=== PATIENT | female | born 1990 | race Caucasian/White ===

== ENCOUNTER 2020-07-17 13:06 | Day surgery (SDC) | payer MEDICAID ==
[2020-07-10 12:09] LABS: BASOPHILS % (AUTO) 0.6 % (0-1); EOSINOPHILS % (AUTO) 0.9 % (0-6); LYMPHOCYTES % (AUTO) 20.9 % (21-51); MEAN CORPUSCULAR HEMOGLOBIN 34.1 PG (27.0-31.0); MEAN CORPUSCULAR HGB CONC 33.8 g/dL (33.0-36.5); MEAN CORPUSCULAR VOLUME 100.8 FL (78-98); MEAN PLATELET VOLUME 8.8 FL (7.4-10.4); MONOCYTES # (AUTO) 0.4 X10'3 (0-0.9); MONOCYTES % (AUTO) 8.6 % (2-12); NEUTROPHILS # (AUTO) 3.3 X10'3 (1.8-7.7); PRE OP HEMATOCRIT 42.4 % (35.0-45.0); PRE OP HEMOGLOBIN 14.3 g/dL (12.0-16.0); PRE OP PLATELET COUNT 210 X10'3 (140-440); RED CELL DISTRIBUTION WIDTH 13.1 % (11.5-14.5)
[2020-07-10 12:16] LABS: CLARITY,URINE CLEAR (Clear); COLOR,URINE STRAW (Yellow); GLUCOSE, URINE NEGATIVE (Neg); KETONES,URINE NEGATIVE (Neg); LEUKOCYTE ESTERASE ,URINE SMALL (Neg); NITRITES, URINE NEGATIVE (Neg); OCCULT BLOOD,URINE NEGATIVE (Neg); PROTEIN,URINE NEGATIVE (Neg); UROBILINOGEN,URINE 0.2 E.U/dL (0.2-1.0)
[2020-07-10 12:32] LABS: ALBUMIN 3.5 G/DL (3.4-5.0); ALBUMIN/GLOBULIN RATIO 0.9 (1.1-1.5); ALKALINE PHOSPHATASE 48 IU/L (46-116); BLOOD UREA NITROGEN 11 MG/DL (7-18); BUN/CREATININE RATIO 15.1 (6.6-38.0); CHLORIDE 107 MMOL/L (99-107); CREATININE 0.73 MG/DL (0.40-0.90); PRE OP ALT 17 U/L (30-65); PRE OP ANION GAP 7 (8-16); PRE OP AST 17 U/L (10-37); PRE OP BILIRUB, TOTAL 0.5 MG/DL (0.0-1.0); PRE OP GLUCOSE 71 MG/DL (70-104); PRE OP POTASSIUM 4.1 MMOL/L (3.4-5.1); PRE OP SODIUM 142 MMOL/L (135-145); TOTAL CARBON DIOXIDE 27.8 MMOL/L (24-32); TOTAL PROTEIN 7.2 G/DL (6.4-8.2); eGFR > 90 ML/MIN
[2020-07-10 12:50] LABS: UA COLLECTION TYPE CLN CATCH MIDSTREAM
[2020-07-10 13:16] LABS: BACTERIA,URINE FEW /HPF (Neg); RBC,URINE 0-2 /HPF (0-2); SQUAMOUS EPITHELIAL CELL,UR FEW /LPF (FEW); WBC,URINE 0-4 /HPF (0-4)
[2020-07-10 13:23] LABS: HCG SERUM QL NEGATIVE
[2020-07-17] VITALS (8 sets, daily range): BP systolic 102–119; BP diastolic 68–78
[~2020-07-17] VITALS: Ht 167.6 cm; Wt 62.4 kg
[~2020-07-17 13:06] MED LIST: CATAPLEX E PO; GASTREX PO; THYROID COMPLEX PO; [UNRECOGNIZED DRUG - OTHER] PO; [UNRECOGNIZED DRUG - OTHER] PO; [UNRECOGNIZED DRUG - OTHER] PO; ceFOXitin 2GM-NS 100mL ADDvant 100 ML IV ONE; famotidine 20mg tablet PO ONE; ringers solution, lacted 1,000 ML IV SCH
[2020-07-17] MEDS ORDERED: meperidine/PF 25mg/ml syringe IV PRN ×3 (13:20)
[2020-07-17] MEDS ORDERED: ringers solution, lacted 1,000 ML IV SCH (13:20)
[2020-07-17] MEDS ORDERED: morphine 4 MG/ML inj SYRINge IV PRN (13:20)
[2020-07-17] MEDS ORDERED: morphine 2 MG/ML inj. syringe IV PRN (13:20)
[2020-07-17] MEDS ORDERED: ondansetron/PF 4mg/2ml inj IV PRN (13:20)
[2020-07-17] MEDS ORDERED: proCHLORperazine 10 MG/2 ml inj IV PRN (13:20)
[2020-07-17] MEDS ORDERED: LIDOcaine 1% (10mg/ml) 2ml vial ONE (14:01)
[2020-07-17] MEDS ORDERED: BUPIVAcaine/PF 2.5 mg/ml (0.25%) 30ml vial ONE (15:18)
[2020-07-17] MEDS ORDERED: fentaNYL/PF 50MCG/1 ML 2ML syringe ONE (16:02)
[2020-07-17] MEDS ORDERED: midazolam 2 mg/2 ml injection ONE (16:02)
[2020-07-17] MEDS ORDERED: ondansetron/PF 4mg/2ml inj ONE (16:21)
[2020-07-17] MEDS ORDERED: sevoflurane 250ml liquid IH ONE (16:21)
[2020-07-17] MEDS ORDERED: dexamethasone sod phosphate 4mg/ml inj. ONE (16:28)
[2020-07-17] MEDS ORDERED: propofol inj 20 ML IV ONE (16:28)
--- NOTE | 2020-07-17 17:00 | NUR ---
ADMITTED TO PACU FROM OR ACCOMPANIED BY ANESTHESIA. INTIAL PHYSICAL ASSESSMENT DONE AND RECORDED. REPORT RECEIVED FROM ANESTHESIA.
--- NOTE | 2020-07-17 18:10 | NUR ---
DISCHARGE CRITERIA MET, DISCHARGE INSTRUCTIONS GIVEN, DEMONSTRATES VERBAL UNDERSTANDING. DISCHARGED HOME IN GOOD CONDITION
== END 2020-07-17 18:10 | disposition home or self-care (01) ==
LOC: PRE-OP 13:06 → PAS 18:10
PROVIDERS: ATTEND Obstetrics & Gynecology Obstetrics
DX: N94.10 Unspecified dyspareunia (principal); N89.8 Other specified noninflammatory disorders of vagina; Z20.822 Contact with and (suspected) exposure to COVID-19; Z79.899 Other long term (current) drug therapy; Z82.49 Family history of ischemic heart disease and other diseases of the circulatory system
CPT/HCPCS: 36415; 56700; 80053; 81001; 84703; 85025; 86885; 86900; 86901; 87088; 87426; 87635; A6402; J0694; J1100; J2001; J2250; J2405; J2704; J3010; J3490; A4215; A4618; A7000; J7120

== ENCOUNTER 2021-10-07 18:45 | Emergency (ER) | payer MEDICAID ==
[~2021-10-07] VITALS: Ht 167.6 cm; Wt 50.0 kg
[~2021-10-07 18:45] MED LIST changes: -ceFOXitin 2GM-NS 100mL ADDvant 100 ML IV ONE; -famotidine 20mg tablet PO ONE; -ringers solution, lacted 1,000 ML IV SCH
[2021-10-07 19:13] VITALS: BP 112/70
[2021-10-07] MEDS ORDERED: ondansetron 4mg rapidly disintigrating tab PO ONE (20:00)
[2021-10-07] MEDS ORDERED: acetaminophen 325mg tablet PO ONE (20:00)
[2021-10-07] MEDS ORDERED: HYDR-3965 PO (20:00)
[2021-10-07] MEDS ORDERED: HYDROcodone/acetaminophen 5mg/325mg tablet PO ONE (20:00)
[2021-10-07] MEDS ORDERED: LIDOcaine 5% patch TP ONE (20:00)
[2021-10-07] MEDS ORDERED: LIDO700A32 TOP (20:00)
== END 2021-10-07 20:25 | disposition home or self-care (01) ==
LOC: ER 18:45
DX: M54.59 Other low back pain (principal); M79.89 Other specified soft tissue disorders
CPT/HCPCS: 99284